=== PATIENT | male | born 1985 | race Caucasian/White ===

== ENCOUNTER 2017-10-09 20:11 | Emergency (ER) | payer MEDICAID ==
[2017-10-09 20:23] VITALS: BP 127/72; PULSE 62; RESP 16; TEMP 98.2; O2SAT 93
--- NOTE | 2017-10-09 20:33 | EDPHY ---
H & P Stated Complaint: Sore throat since [place], cough. Time Seen by Provider: 10/09/17 20:17 HPI/ROS: Chief Complaint: Sore throat, cough HPI: 32-year-old male who recently moved to [place] from [facility] is been having sore throat congestion and cough for the last 2 months. He has a lot of throat clearing. Has persistent discomfort in his throat and some pain with swallowing. No difficulty breathing. He has been taking ibuprofen without any relief. Does have humidifiers in this house but feels very dry. No fevers or chills. Occasional bringing up yellowish sputum. Cough is otherwise nonproductive. No fevers or chills. No nausea or vomiting. ROS: 10 point Review of Systems is negative except as noted in the HPI. PMH: Denies Social History: No smoking, no alcohol, no recreational drug use Family History: non-contributory Physical Exam: Gen: Awake, Alert, No Distress HEENT: Nose: no rhinorrhea Eyes: PERRLA, EOMI Mouth: Moist mucosa mild oral pharyngeal erythema consistent with postnasal drip, no exudate or edema Neck: Supple, no JVD Chest: nontender, lungs clear to auscultation Heart: S1, S2 normal, no murmur Abd: Soft, non-tender, no guarding Back: no CVA tenderness, no midline tenderness Ext: no edema, non-tender Skin: no rash Neuro: CN II-XII intact, Sensation grossly intact, Strength 5/5 in bilateral upper and lower extremities - Personal History Current Tetanus/Diphtheria Vaccine: Unsure Current Tetanus Diphtheria and Acellular Pertussis (TDAP): Unsure - Medical/Surgical History Hx Asthma: No Hx Chronic Respiratory Disease: No Hx Diabetes: No Hx Cardiac Disease: No Hx Renal Disease: No Hx Cirrhosis: No Hx Alcoholism: No Hx HIV/AIDS: No Hx Splenectomy or Spleen Trauma: No Other PMH: L ankle reconstruction, marijuana user. - Social History Smoking Status: Former smoker Constitutional: Initial Vital Signs Temperature (C) 36.8 C 10/09/17 20:20 Heart Rate 62 10/09/17 20:20 Respiratory Rate 16 10/09/17 20:20 Blood Pressure 127/72 H 10/09/17 20:20 O2 Sat (%) 93 10/09/17 20:20 O2 Delivery Mode Room Air Allergies/Adverse Reactions: succinylcholine Allergy (Intermediate, Verified 10/09/17 20:23) Unknown Home Medications: Medication Instructions Recorded Fluticasone Nasal [Flonase Nasal 2 sprays NASAL DAILY #1 mdi 10/09/17 [place] (RX)] Departure - Departure Disposition: Home, Routine, Self-Care Clinical Impression: Rhinitis, Postnasal drip Condition: Good Instructions: Postnasal Drip (DC) Additional Instructions: Start using Flonase daily, it will probably take at least a week before you have any relief. May take ibuprofen as needed for pain. Follow up with primary care physician at [facility] in 4-5 days for further evaluation. [facility] [Primary Care Provider] - As per Instructions Prescriptions: Fluticasone Nasal [Flonase Nasal [place] (RX)] 2 sprays NASAL DAILY #1 mdi
== END 2017-10-09 20:35 | disposition home or self-care (01) ==
LOC: CED 20:11
DX: R09.82 Postnasal drip (principal); J31.0 Chronic rhinitis; Z87.891 Personal history of nicotine dependence